=== PATIENT | male | born 1995 | race Caucasian/White ===

== ENCOUNTER 2016-06-23 20:56 | Emergency (ER) | payer OTHER ==
[~2016-06-23] VITALS: Ht 177.8 cm; Wt 105.6 kg
[2016-06-24] MEDS ORDERED: VALACYCLOVIR1000 MG PO (00:39)
[2016-06-24 00:55] VITALS: BP 128/79
== END 2016-06-24 00:55 | disposition home or self-care (01) ==
LOC: EME 20:56
DX: B00.9 Herpesviral infection, unspecified (principal)
CPT/HCPCS: 99281; 99284